=== PATIENT | female | born 1975 | race Caucasian/White ===

== ENCOUNTER 2024-01-08 16:17 | Emergency (ER) | payer MEDICAID, SELFPAY ==
[2024-01-08 16:19] VITALS: BP 113/65; PULSE 84; RESP 14; TEMP 36.3; O2SAT 100; BMI 18.2
--- NOTE | 2024-01-08 18:30 | RAD_ITS ---
STUDY: X-RAY - RIGHT ANKLE REASON FOR EXAM: Female, 48 years old. injury TECHNIQUE: 3 view(s) of the ankle. COMPARISON: None. FINDINGS: Normal visualized distal tibia and fibula. Normal medial and lateral malleoli. Normal tibiotalar articulation and ankle mortise. Normal visualized talus and calcaneus. The visualized subtalar, talonavicular, calcaneocuboid and tarsal articulations are normal. The soft tissue structures are unremarkable. RAD/Ankle min 3 Views IMPRESSION: Normal x-ray examination of the ankle. Electronically Signed: Jh Osman MD at 19:21 EST ,
--- NOTE | 2024-01-08 18:40 | RAD_ITS ---
STUDY: X-RAY - LEFT WRIST REASON FOR EXAM: Female, 48 years old. injury TECHNIQUE: 3 view(s) of the wrist were obtained. COMPARISON: None. FINDINGS: Normal visualized distal radius and ulna. Normal radiocarpal articulation. Normal distal radioulnar articulation. Normal carpal bones. Normal carpal articulations. Normal carpometacarpal articulation of the thumb. Normal second through fifth carpometacarpal articulations. Normal visualized metacarpal bones. The soft tissue structures are unremarkable. RAD/Wrist min 3 Views IMPRESSION: Normal x-ray examination of the wrist. Electronically Signed: Jh Osman MD at 19:20 EST ,
--- NOTE | 2024-01-08 18:57 | ED.VIS.FALL ---
HPI HPI - Fall History of Present Illness Chief Complaint: Fall Informant: patient Narrative Narrative: Presents today for fall occurring at noon. Using a crystal when she fell backwards. Pain in left wrist and right ankle. She picked up shoulder sling and placed herself in it. She came here for evaluation. Denies head injuries. Discussed certain movements pain or risk goes up her arm. No shoulder pain. No neck pain. PFSH PFSH Allergy/AdvReac Type Severity Reaction Status Date / Time No Known Allergies Allergy Verified 01/08/24 16:19 Social History Smoking Status: Never smoker ROS ROS ED Constitutional Constitutional ED: Denies chills, fever(s) or sweats Eyes Eyes: Denies change in vision ENT ENT ED: Denies dysphagia or sore throat Cardiovascular Cardiovascular: Denies chest pain, leg edema, palpitations or racing heartbeat Respiratory/Chest Respiratory/Chest: Denies cough, dyspnea or dyspnea on exertion Gastrointestinal Gastrointestinal: Denies abdominal pain, diarrhea, nausea or vomiting Genitourinary Genitourinary ED: Denies dysuria, hematuria or urinary frequency Musculoskeletal Musculoskeletal: Reports extremity pain and other Details: Left wrist, right ankle injury ; Denies back pain or neck pain Integumentary Denies rash or wounds Neurologic Neurologic: Denies headache(s), paresthesias or weakness EXAM Physical Exam Const Vital Signs: 01/08/24 16:19 01/08/24 18:48 Temperature 97.4 F L Temperature Source Temporal Pulse Rate 84 Respiratory Rate 14 Respiratory Effort Normal Non-Labored Respiratory Depth Normal Respiratory Pattern Normal Blood Pressure 113/65 Blood Pressure Mean 81 Pulse Ox 100 Oxygen Delivery Method Room Air Room Air Positive well nourished and well developed Constitutional Narrative: GCS 15 General Appearance ED: well developed and NAD HEENT Reports moist mucous membranes normocephalic and atraumatic Eyes PERRL, EOMs intact bilaterally and conjunctivae normal General Eye ED: Yes normal appearance of both eyes Neck no lymphadenopathy and supple General: Negative for tenderness Chest Wall Chest: Negative for tenderness Resp normal respiratory effort and normal air movement Effort and Inspection: symmetric chest movement; Negative for respiratory distress Cardio regular rate, regular rhythm and no murmurs Peripheral Pulses: pulses 2+ throughout GI normal to inspection, nondistended, normoactive bowel sounds and non-tender Palpation: Negative for guarding or rebound tenderness present Back/Spine no CVA tenderness and no thoracic nor lumbar tenderness Extremity Extremity Narrative: Left shoulder sling removed. Examining shoulder without tenderness no elbow tenderness. Mild tenderness dorsal aspect of the wrist, no snuffbox tenderness no swelling. No hand tenderness. There is small ecchymosis at the hypothenar aspect of the hand. Skin is intact. Lower extremities: Negative logroll. Right lower extremity: No knee tenderness. Ankle exam unable to stress pain with axial load varus valgus stress. No malleoli or tenderness. No midfoot or proximal fifth base tenderness. General Extremety ED: Negative for edema or tenderness General Extremity: Negative for edema Neuro oriented x3 and no sensory deficits noted Sensorium / Orientation: awake and alert Skin no rashes or lesions noted and no wounds MDM MDM MDM Narrative Medical decision making narrative: Interventions / MDM: Differential diagnosis: Diagnosis considered but do not suspect: N/A My EKG interpretation: N/A Imaging independently reviewed and interpreted by myself: Three-view left wrist: No fracture or dislocation. 3 view right ankle: No fracture noted. External documents reviewed: N/A Test considered but not ordered:N/A ED course: Mechanical fall x-ray left wrist and right ankle ordered. X-rays are negative. Velcro wrist splint Aircast provided. She will use Advil at home every 6 hours as needed. Outpatient follow-up with her doctor. All questions were answered. Re-evaluation: stable Disposition discussed with patient/family/significant other: Patient Case discussed with consulting clinician: N/A This note was generated with Ansible dictation software. It may contain incorrect words, spelling, and punctuation that were not noted in checking the note before signing. Radiography Diagnostic Testing: Clinical Impression(s) from Imaging Studies Ankle X-Ray 01/08/24 18:30 IMPRESSION: Normal x-ray examination of the ankle. Electronically Signed: Jh Osman MD at 19:21 EST , Wrist X-Ray 01/08/24 18:40 IMPRESSION: Normal x-ray examination of the wrist. Electronically Signed: Jh Osman MD at 19:20 EST , Discharge Plan Triage Chief Complaint: Fall ED Provider: Gregory Sheth Dx/Rx/DC Orders Clinical Impression: Fall, Right ankle sprain, Left wrist sprain Instructions: Treating Ankle Sprains, ED Wrist Sprain Primary Care Provider: Care Physician,No Primary Referrals: Lora Horta MD [Med Staff - Behavioral Interventionist] - 1-2 Weeks Care Physician,No Primary [Primary Care Provider] - Activity Restrictions/Additional Instructions: Wrist x-ray negative. Ankle x-ray negative. Use splints for support. Advil 400 mg every 6 hours for the next 2 days then as needed. Disposition Disposition: Home, Self Care Discharge Date/Time: 01/08/24 20:07
== END 2024-01-08 20:07 | disposition home or self-care (01) ==
PROVIDERS: Emergency Provider Emergency Medicine; Visit Provider Emergency Medicine
DX: S93.401A Sprain of unspecified ligament of right ankle, initial encounter (principal); S63.502A Unspecified sprain of left wrist, initial encounter; W18.39XA Other fall on same level, initial encounter
CPT/HCPCS: 73110; 73610; 99283